=== PATIENT | female | born 1995 | race Two or more races ===

== ENCOUNTER 2021-10-13 00:33 | Inpatient (IN) | payer OTHER ==
[~2021-10-13] VITALS: Ht 157.5 cm; Wt 90.7 kg
[2021-10-13] MEDS ORDERED: FERR-71 PO (01:45)
[2021-10-13] MEDS ORDERED: PNV91TAB6 PO (01:45)
[2021-10-13] MEDS ORDERED: FOLI0.4T6 PO (01:45)
[2021-10-13] MEDS ORDERED: LEVO75TA7 PO (01:45)
[2021-10-13] MEDS: LACTATED RINGERS 1,000 ML IV SCH ×2 (02:04→02:49)
[2021-10-13 02:49] LABS: BASOPHILS % 0.7 % (0.0-2.0); EOSINOPHILS % 4.5 % (0.0-5.0); HEMATOCRIT. 38.3 % (36.0-48.0); HEMOGLOBIN. 12.7 g/dL (12.0-16.0); LYMPHOCYTES % 24.2 % (20.0-50.0); MEAN CORPUSCULAR HEMOGLOBIN 28.1 pg (28.0-32.0); MEAN CORPUSCULAR VOLUME 84.7 fL (81.0-99.0); MEAN PLATELET VOLUME 10.9 fl (7.4-10.4); MONOCYTES % 8.1 % (2.0-8.0); NEUTROPHILS % 62.5 % (40.0-76.0); PLATELET 108 x1000/uL (130-400); RED BLOOD CELL COUNT 4.52 mill/uL (4.2-5.4); RED CELL DISTRIBUTION WIDTH 15.3 % (11.6-14.6)
[2021-10-13 02:54] LABS: CLARITY URINE CLEAR (CLEAR); COLOR URINE YELLOW (YELLOW); KETONES URINE NEGATIVE (NEGATIVE); LEUKOCYTE ESTERASE URINE TRACE (NEGATIVE); NITRITE URINE NEGATIVE (NEGATIVE); OCCULT BLOOD URINE NEGATIVE (NEGATIVE); PH URINE 6.5 (4.5-8.0); PROTEIN URINE NEGATIVE (NEGATIVE); SPECIFIC GRAVITY URINE 1.012 (1.005-1.030); UROBILINOGEN URINE 0.2 E.U./dL (0.2-1.0)
[2021-10-13 03:00] LABS: PROTHROMBIN TIME 10.3 sec (9.6-11.0)
[2021-10-13 03:23] LABS: *AMPHETAMINES SCREEN URINE NEGATIVE (NEGATIVE); *BARBITURATES SCREEN URINE NEGATIVE (NEGATIVE); *BENZODIAZEPINES SCREEN URINE NEGATIVE (NEGATIVE); *COCAINE SCREEN URINE NEGATIVE (NEGATIVE); METHADONE URINE SCREEN NEGATIVE (NEGATIVE); OPIATES URINE SCREEN NEGATIVE (NEGATIVE)
[2021-10-13 03:25] LABS: CANNABINOID URINE SCREEN NEGATIVE (NEGATIVE); PHENCYCLIDINE URINE SCREEN NEGATIVE (NEGATIVE)
[2021-10-13] MEDS ORDERED: METHYLERGONOVINE MALEATE 0.2 MG/ML IM PRN (03:30)
[2021-10-13] MEDS ORDERED: NALOXONE HCL 0.4 MG/ML 1ML VIAL IM PRN (03:30)
[2021-10-13] MEDS ORDERED: TERBUTALINE SULFATE 1MG/ML VIAL SUBCUT PRN (03:30)
[2021-10-13 03:45] LABS: HEPATITIS B SURFACE ANTIGEN NEGATIVE
[2021-10-13] MEDS ORDERED: DEXT 5%/LR + PITOCIN 20UNITS/L 1,000 ML IV SCH (04:00)
[2021-10-13] MEDS ORDERED: MORPHINE SULFATE/PF 1MG/ML 10ML AMP ONE (06:53)
[2021-10-13] MEDS ORDERED: PHENYLEPHRINE HCL 10 MG/ML 1ML (IV VIAL) IV ONE (06:54)
[2021-10-13] MEDS ORDERED: STERILE WATER FOR INJECTION 10ML VIAL ONE (06:54)
[2021-10-13] MEDS ORDERED: ONDANSETRON HCL 4MG/2ML INJ ONE (06:54)
[2021-10-13] MEDS ORDERED: KETOROLAC 60MG/2ML VIAL IM ONE ×2 (06:54→08:22)
[2021-10-13] MEDS ORDERED: OXYTOCIN 10 UNITS/ML 1ML ONE ×2 (06:55→08:11)
[2021-10-13] MEDS ORDERED: EPHEDRINE SULFATE 50MG/ML VIAL ONE (06:55)
[2021-10-13] MEDS ORDERED: CEFAZOLIN SODIUM 1000MG/VIAL ONE (06:55)
[2021-10-13] MEDS ORDERED: SODIUM CHLORIDE 0.9% 10ML VIAL ONE (06:55)
[2021-10-13] MEDS ORDERED: DEXAMETHASONE 4MG/ML 1ML VIAL ONE (06:56)
[2021-10-13] MEDS ORDERED: CITRIC ACID/SODIUM CITRATE SOLN 30ML UDC PO NR (07:00)
[2021-10-13] MEDS ORDERED: ONDANSETRON HCL 4MG/2ML INJ IV PRN (07:30)
[2021-10-13] MEDS ORDERED: RHO(D) IMMUNE GLOBULIN 300 MCG/SYR IM PRN (07:30)
[2021-10-13] MEDS ORDERED: HEMORRHOIDAL SUPP PR PRN (07:30)
[2021-10-13] MEDS ORDERED: IBUPROFEN 400MG TABLET PO PRN (07:30)
[2021-10-13] MEDS ORDERED: BISACODYL 10MG SUPP PR PRN (07:30)
[2021-10-13] MEDS ORDERED: HYDROCODONE/ACETAMINOPHEN 5/325MG TABLET PO PRN (07:30)
[2021-10-13] MEDS ORDERED: NALOXONE HCL 0.4 MG/ML 1ML VIAL IV PRN (08:15)
[2021-10-13] MEDS: DEXT 5%/LR + PITOCIN 20UNITS/L 1,000 ML IV SCH ×2 (10:22→17:30)
[2021-10-13 11:10] VITALS: BP 114/71
[2021-10-13 12:10] VITALS: BP 113/64
[2021-10-13] MEDS: SIMETHICONE 80MG TABLET CHEW PO SCH (13:00)
[2021-10-13] MEDS: MAGNESIUM/ALUMINUM HYDROXIDE/SIMETHICONE 30ML UDC PO SCH ×2 (13:00→17:00)
[2021-10-13] MEDS: KETOROLAC 30MG/ML VIAL IV PRN ×2 (15:18→20:08)
[2021-10-13 16:00] VITALS: BP 110/54
[2021-10-13] MEDS ORDERED: NALOXONE HCL 0.4MG/ML VIAL IV PRN (17:45)
[2021-10-13] MEDS: DOCUSATE SODIUM 100MG CAPSULE PO SCH (21:00)
[2021-10-13] MEDS ORDERED: DIPHENHYDRAMINE 25MG CAPSULE PO PRN (21:00)
[2021-10-14 00:56] VITALS: BP 126/67
[2021-10-14] MEDS: KETOROLAC 30MG/ML VIAL IV PRN (03:53)
[2021-10-14 07:02] LABS: BASOPHILS % 0.3 % (0.0-2.0); EOSINOPHILS % 1.8 % (0.0-5.0); HEMATOCRIT. 35.5 % (36.0-48.0); HEMOGLOBIN. 11.8 g/dL (12.0-16.0); LYMPHOCYTES % 12.9 % (20.0-50.0); MEAN CORPUSCULAR HEMOGLOBIN 28.1 pg (28.0-32.0); MEAN CORPUSCULAR VOLUME 84.5 fL (81.0-99.0); MEAN PLATELET VOLUME 10.4 fl (7.4-10.4); MONOCYTES % 6.2 % (2.0-8.0); NEUTROPHILS % 78.8 % (40.0-76.0); PLATELET 99 x1000/uL (130-400); RED BLOOD CELL COUNT 4.19 mill/uL (4.2-5.4); RED CELL DISTRIBUTION WIDTH 15.2 % (11.6-14.6)
[2021-10-14 08:00] VITALS: BP 111/59
[2021-10-14] MEDS ORDERED: LEVOTHYROXINE SODIUM 75MCG TABLET PO SCH (09:00)
[2021-10-14] MEDS: FERROUS SULFATE 325MG TABLET PO SCH (09:21)
[2021-10-14] MEDS: MAGNESIUM/ALUMINUM HYDROXIDE/SIMETHICONE 30ML UDC PO SCH ×2 (09:21→21:37)
[2021-10-14] MEDS: SIMETHICONE 80MG TABLET CHEW PO SCH ×2 (09:22→21:37)
[2021-10-14] MEDS: PRENATAL VIT/FE FUMARATE/FA TABLET PO SCH (09:23)
[2021-10-14] MEDS: IBUPROFEN 800MG TABLET PO PRN ×2 (09:23→17:13)
[2021-10-14 16:00] VITALS: BP 111/70
[2021-10-14] MEDS: DOCUSATE SODIUM 100MG CAPSULE PO SCH (21:38)
[2021-10-14 22:00] VITALS: BP 110/68
[2021-10-15] MEDS: IBUPROFEN 800MG TABLET PO PRN ×3 (03:08→09:12)
[2021-10-15 04:18] VITALS: BP 113/71
[2021-10-15 08:00] VITALS: BP 128/85
[2021-10-15] MEDS: SIMETHICONE 80MG TABLET CHEW PO SCH ×2 (09:10→09:13)
[2021-10-15] MEDS: FERROUS SULFATE 325MG TABLET PO SCH ×2 (09:10→09:12)
[2021-10-15] MEDS: PRENATAL VIT/FE FUMARATE/FA TABLET PO SCH ×2 (09:10→09:13)
[2021-10-15 09:12] VITALS: BP 113/71
[2021-10-15] MEDS ORDERED: IBUP-2030 PO (10:17)
== END 2021-10-15 12:00 | disposition home or self-care (01) | DRG 540 ==
LOC: 8 EST LDRP 00:33 → OBSVTOIN 00:33 → 8EST NSY 16:12 → 8EST 17:39
PROVIDERS: ADMIT Obstetrics & Gynecology; ATTEND Obstetrics & Gynecology
PROC: 10D00Z1 Extraction of Products of Conception, Low, Open Approach (ICD-10-PCS; principal; 2021-10-14)
DX: O34.211 Maternal care for low transverse scar from previous cesarean delivery (principal); E03.9 Hypothyroidism, unspecified; O99.284 Endocrine, nutritional and metabolic diseases complicating childbirth; Z20.822 Contact with and (suspected) exposure to COVID-19; Z37.0 Single live birth; Z3A.36 36 weeks gestation of pregnancy; Z79.899 Other long term (current) drug therapy
CPT/HCPCS: 36415; 80305; 81003; 85025; 86592; 86703; 86762; 86850; 86900; 87340; 87426; 88307; 99281; A4216; J0690; J1100; J1885; J2274; J2370; J2405; J2590; J3105; J3490; J7120